=== PATIENT | male | born 1950 | race Caucasian/White ===

== ENCOUNTER 2016-06-30 05:53 | Day surgery (SDC) | payer MEDICARE, OTHER ==
[~2016-06-30 05:53] MED LIST: APRES10B PO; APRES25 PO; ASAB PO; ATEN25 PO; B COMPLETE PO; CLARIT10 PO; CO Q-10100 MG PO; COENZYME Q10; ENABLEX15 PO; FIBERCON PO; FISH-EPA1000 MG PO; FORTAMET500 MG PO; GLUCPH PO; HALF81 PO; IRON325 MG PO; KDUR20 PO; L40 PO; LINZESS 145 M145 MCG PO; LOTREL1 CA2 PO; MIRALAX POWDER1 PKT PO; MIRALAXPKT PO; MIRAPEX1 MG PO; MIRAPEX5 PO; MULTI-VIT HP PO; MYRBETRIQ25 MG PO; PRILO PO; PRIM50B PO; PRIN20 PO; SIN25 PO; SPIRO50 PO; TRAZ50 PO; VALTREX5 PO; VITAMIN E; VITE PO; WELLBUTRIN200 MG PO; WELLSR150 PO; X5 PO; XANAX1 MG PO; ZANAFLEX 4 MG TA4 MG PO
[2016-09-30] MEDS ORDERED: *UNABLE1 (09:49)
[2016-09-30] MEDS ORDERED: ASAB PO (11:01)
[2016-09-30] MEDS ORDERED: ATEN25 PO (11:02)
[2016-09-30] MEDS ORDERED: L40 PO (11:02)
[2016-09-30] MEDS ORDERED: MIRALAX POWDER1 PKT PO (11:02)
[2016-09-30] MEDS ORDERED: SPIRO50 PO (11:03)
[2016-09-30] MEDS ORDERED: PRIN20 PO (11:04)
[2016-09-30] MEDS ORDERED: KDUR20 PO (11:04)
[2016-09-30] MEDS ORDERED: APRES25 PO (11:05)
[2016-09-30] MEDS ORDERED: WELLBUTRIN200 MG PO (11:06)
[2016-09-30] MEDS ORDERED: GLUCPH PO (11:06)
[2016-09-30] MEDS ORDERED: PRIM50B PO (11:07)
[2016-09-30] MEDS ORDERED: MYRAC50 MG (11:07)
[2016-09-30] MEDS ORDERED: MIRAPEX1 MG PO (11:08)
[2016-09-30] MEDS ORDERED: SIN25 PO (11:09)
[2016-09-30] MEDS ORDERED: TRAZ50 PO (11:10)
[2016-09-30] MEDS ORDERED: ZANAFLEX 4 MG TA4 MG (11:10)
[2016-10-01] MEDS ORDERED: HALF81 PO (17:26)
[2016-10-01] MEDS ORDERED: APRES25 PO (17:26)
[2016-10-01] MEDS ORDERED: SIN25 PO (17:26)
[2016-10-01] MEDS ORDERED: MYRBETRIQ50 MG PO (17:27)
[2016-10-01] MEDS ORDERED: NEUR300 PO (17:28)
[2016-10-01] MEDS ORDERED: MEDIHONEY TOP (17:29)
[2016-10-01] MEDS ORDERED: KETOCONAZOLE 2% SHAM TOP (17:30)
[2016-10-01] MEDS ORDERED: NORCO1 TA1 PO (17:30)
== END 2016-06-30 14:39 | disposition home or self-care (01) ==
LOC: SDC 05:53
PROVIDERS: Orthopaedic Surgery
PROC: 3E0S33Z Introduction of Anti-inflammatory into Epidural Space, Percutaneous Approach (ICD-10-PCS; principal; 2016-06-30 08:15)
DX: M54.16 Radiculopathy, lumbar region (principal); E11.9 Type 2 diabetes mellitus without complications; H91.90 Unspecified hearing loss, unspecified ear; I10 Essential (primary) hypertension; G47.30 Sleep apnea, unspecified; M19.90 Unspecified osteoarthritis, unspecified site; K44.9 Diaphragmatic hernia without obstruction or gangrene; N40.0 Benign prostatic hyperplasia without lower urinary tract symptoms; F41.9 Anxiety disorder, unspecified; F32.9 Major depressive disorder, single episode, unspecified; Z98.890 Other specified postprocedural states; Z90.89 Acquired absence of other organs
CPT/HCPCS: 82962; J1040; J2250; J3010; Q9967

== ENCOUNTER 2016-07-14 05:23 | Day surgery (SDC) | payer MEDICARE, OTHER ==
[2016-09-30] MEDS ORDERED: *UNABLE1 (09:49)
[2016-09-30] MEDS ORDERED: ASAB PO (11:01)
[2016-09-30] MEDS ORDERED: L40 PO (11:02)
[2016-09-30] MEDS ORDERED: ATEN25 PO (11:02)
[2016-09-30] MEDS ORDERED: MIRALAX POWDER1 PKT PO (11:02)
[2016-09-30] MEDS ORDERED: SPIRO50 PO (11:03)
[2016-09-30] MEDS ORDERED: PRIN20 PO (11:04)
[2016-09-30] MEDS ORDERED: KDUR20 PO (11:04)
[2016-09-30] MEDS ORDERED: APRES25 PO (11:05)
[2016-09-30] MEDS ORDERED: GLUCPH PO (11:06)
[2016-09-30] MEDS ORDERED: WELLBUTRIN200 MG PO (11:06)
[2016-09-30] MEDS ORDERED: PRIM50B PO (11:07)
[2016-09-30] MEDS ORDERED: MYRAC50 MG (11:07)
[2016-09-30] MEDS ORDERED: MIRAPEX1 MG PO (11:08)
[2016-09-30] MEDS ORDERED: SIN25 PO (11:09)
[2016-09-30] MEDS ORDERED: TRAZ50 PO (11:10)
[2016-09-30] MEDS ORDERED: ZANAFLEX 4 MG TA4 MG (11:10)
[2016-10-01] MEDS ORDERED: SIN25 PO (17:26)
[2016-10-01] MEDS ORDERED: HALF81 PO (17:26)
[2016-10-01] MEDS ORDERED: APRES25 PO (17:26)
[2016-10-01] MEDS ORDERED: MYRBETRIQ50 MG PO (17:27)
[2016-10-01] MEDS ORDERED: NEUR300 PO (17:28)
[2016-10-01] MEDS ORDERED: MEDIHONEY TOP (17:29)
[2016-10-01] MEDS ORDERED: NORCO1 TA1 PO (17:30)
[2016-10-01] MEDS ORDERED: KETOCONAZOLE 2% SHAM TOP (17:30)
== END 2016-07-14 07:57 | disposition home or self-care (01) ==
LOC: SDC 05:23
PROVIDERS: Orthopaedic Surgery
PROC: B01BZZZ Fluoroscopy of Spinal Cord (ICD-10-PCS; 2016-07-14)
PROC: 3E0R33Z Introduction of Anti-inflammatory into Spinal Canal, Percutaneous Approach (ICD-10-PCS; principal; 2016-07-14 07:00)
DX: M54.16 Radiculopathy, lumbar region (principal); E11.9 Type 2 diabetes mellitus without complications; M19.90 Unspecified osteoarthritis, unspecified site; Z86.010 Personal history of colon polyps; F41.9 Anxiety disorder, unspecified; F32.9 Major depressive disorder, single episode, unspecified; Z98.890 Other specified postprocedural states
CPT/HCPCS: 82962; J1040; J2250; J3010; Q9967